=== PATIENT | male | born 1990 | race African-American/Black ===

== ENCOUNTER 2017-02-20 20:55 | Emergency (ER) | payer SELFPAY ==
[~2017-02-20] VITALS: Ht 170.2 cm; Wt 70.3 kg
[~2017-02-20 20:55] MED LIST: HYDR-971 PO; OMEP20TA63 PO; ONDA4TAB10 SL
[2017-02-20 21:00] VITALS: BP 153/90
--- NOTE | 2017-02-20 22:11 | PHYS DOC ---
Past Medical History Past Medical History: Gallstones, Other Additional Past Medical Histor: "inflammed gallbladder", Sickle Cell Trait Past Surgical History: No Surgical History Alcohol Use: Occasionally Drug Use: Marijuana, Methamphetamine Adult General Chief Complaint Chief Complaint: ALCOHOL INTOXICATION HPI HPI Patient is a 26 year old gentleman who was seen in the ED today secondary to being tased. Patient reports that he was drinking heavily today. Patient reports he came to the ER because his friend was ill. While the ER with apparent confrontation with security which required the patient being tased. Upon my arrival the patient was originally being evaluated with can see please department. The patient originally been removed. The patient was clearly upset and was refusing to talk to me. Patient uses multiple expletives at me in a threatening way as well as threatening my and children if anything get out of his face. I discussed with the patient that I would need to clear her medically before we can proceed any further and I discussed with him that I would allow him time to cool down and I would come back to reevaluate him. At this time patient was a cuffed with can see please his bedside. He remained calm in the room and the decision was made to release him from hitting cuffs and the police left. Once please left patient was much more cooperative. Patient was able to give a full history. Patient reports that he came here today because his friend was ill with retrosternal okay. Patient was concerned because he left his 2 daughters with the neighbors that he really wants to go back. Patient has any fevers shakes chills nausea vomiting diarrhea chest pain shortness of breath cough cold or rhinorrhea. Patient refusing any further workup in the ER now. Patient is refusing to stay in the hospital any further because he really wants to see his kids. Patient's physical exam was unremarkable. Patient had a small puncture wound to his back with no active bleeding. Patient is alert awake oriented 3. Once please left patient was initially appropriate and thankful for everything that we have done. Patient was apologetic for the way that he behaved. Patient is able to iodine the ED without any difficulty. Patient stable gait. Patient has full capacity of the situation. Is competent to make medical decision making. Patient understands my concerns and leaving prior to full evaluation. Patient has a dressed multiple times that he would refuse to stay and he becomes somewhat aggressive when I try to her person associated with him. Patient has agreed to call his girlfriend to come pick him up. Patient's girlfriend was unable to pick him up so he is decided to leave. Our urge nurse Rosa has offered to get him a cab voucher to take him back home however he is refusing to stay and decided to just leave. Review of Systems Review of Systems Constitutional: Denies fever or chills [] Eyes: Denies change in visual acuity, redness, or eye pain [] All other review systems are negative except as documented in history of present illness portion. Allergies Allergies Allergies Coded Allergies Type Severity Reaction Last Updated Verified No Known Drug Allergies 05/14/16 No Physical Exam Physical Exam Constitutional: Well developed, well nourished, no acute distress, non-toxic appearance. [] HENT: Normocephalic, atraumatic, bilateral external ears normal, Eyes: PERRLA, EOMI, conjunctiva normal, no discharge. [] Neck: Normal range of motion, no tenderness, supple, no stridor. [] Cardiovascular:Heart rate regular rhythm, no murmur [] Lungs & Thorax: Bilateral breath sounds clear to auscultation [] Abdomen: Bowel sounds normal, soft, no tenderness, no masses, no pulsatile masses. [] Skin: Warm, dry, no erythema, no rash. [] Back: No tenderness, no CVA tenderness. [] Extremities: No tenderness, no cyanosis, no clubbing, ROM intact, no edema. [] Neurologic: Alert and oriented X 3, normal motor function, normal sensory function, no focal deficits noted. [] Psychologic: Affect normal, judgement normal, mood normal. [] Current Patient Data Vital Signs Vital Signs Date Time Temp Pulse Resp B/P (MAP) Pulse Ox O2 Delivery O2 Flow Rate FiO2 02/20/17 21:00 98 22 153/90 (111) 97 Room Air EKG EKG [] Radiology/Procedures Radiology/Procedures [] Course & Med Decision Making Course & Med Decision Making Pertinent Labs and Imaging studies reviewed. (See chart for details) [] Dragon Disclaimer Dragon Disclaimer This electronic medical record was generated, in whole or in part, using a voice recognition dictation system. Departure Departure Impression: Primary Impression: Taser injury Additional Impression: Alcohol use Disposition: HOME, SELF-CARE Condition: IMPROVED Referrals: NO PCP (PCP) Patient Instructions: Alcohol Problems, Wound Care, [id number] Problem Qualifiers Primary Impression: Taser injury Encounter type: initial encounter Qualified Codes: T75.4XXA - Electrocution , initial encounter YARA BOWMAN MD February 20, 2017 22:11
== END 2017-02-20 22:17 | disposition home or self-care (01) ==
LOC: ER 20:55
DX: T75.4XXA Electrocution, initial encounter (principal); F10.129 Alcohol abuse with intoxication, unspecified; F12.10 Cannabis abuse, uncomplicated; F15.10 Other stimulant abuse, uncomplicated; X58.XXXA Exposure to other specified factors, initial encounter; Y93.89 Activity, other specified; Y99.8 Other external cause status; Y92.89 Other specified places as the place of occurrence of the external cause
CPT/HCPCS: 99281

== ENCOUNTER 2017-09-21 10:39 | Emergency (ER) | payer SELFPAY ==
[~2017-09-21] VITALS: Ht 180.3 cm; Wt 70.3 kg
--- NOTE | 2017-09-21 11:11 | RAD ---
EXAM: CHEST 2 VIEWS History: Vomiting, lightheadedness COMPARISON: 09/04/2016 TECHNIQUE: PA and lateral chest radiographs FINDINGS: The cardiomediastinal silhouette is within normal limits. The lungs are clear bilaterally. The costophrenic sulci are clear and well demarcated bilaterally. IMPRESSION: No radiographic evidence of an acute cardiopulmonary abnormality.
[2017-09-21] MEDS ORDERED: BENZ100C PO (11:18)
[2017-09-21] MEDS ORDERED: PRED20TA PO (11:18)
--- NOTE | 2017-09-21 11:18 | PHYS DOC ---
Past Medical History Past Medical History: Gallstones, Other Additional Past Medical Histor: "inflammed gallbladder", Sickle Cell Trait Past Surgical History: No Surgical History Additional Information: 0.5 PPD Alcohol Use: Heavy Additional Information: DRINKS EVERY 2 TO 3 DAYS, 1/2 TO 1 [employer]. Drug Use: Marijuana, Methamphetamine Adult General Chief Complaint Chief Complaint: CHEST PAIN-NON CARDIAC NATURE HPI HPI Patient is a 27 year old male presents the ED complaining of cough 2 days. Patient states he has pain in his chest when he coughs. Associated symptoms include sore throat and rhinorrhea. Patient states he is a pack-a-day smoker. Patient also uses marijuana. Denies fever, palpitations, dizziness, weakness, nausea/vomiting, abdominal pain, headache, body aches, fever or sore throat. Review of Systems Review of Systems Constitutional: Denies fever or chills [] Eyes: Denies change in visual acuity, redness, or eye pain [] HENT: Denies nasal congestion or sore throat [] Respiratory: Complains of cough. Denies shortness of breath [] Cardiovascular: No additional information not addressed in HPI [] GI: Denies abdominal pain, nausea, vomiting, bloody stools or diarrhea [] : Denies dysuria or hematuria [] Musculoskeletal: Denies back pain or joint pain [] Integument: Denies rash or skin lesions [] Neurologic: Denies headache, focal weakness or sensory changes [] Endocrine: Denies polyuria or polydipsia [] All other systems were reviewed and found to be within normal limits, except as documented in this note. Allergies Allergies Allergies Coded Allergies Type Severity Reaction Last Updated Verified No Known Drug Allergies 05/14/16 No Physical Exam Physical Exam Constitutional: Well developed, well nourished, no acute distress, non-toxic appearance. [] HENT: Normocephalic, atraumatic, bilateral external ears normal, oropharynx moist, no oral exudates, nose normal. [] Eyes: PERRLA, EOMI, conjunctiva normal, no discharge. [] Neck: Normal range of motion, no tenderness, supple, no stridor. [] Cardiovascular:Heart rate regular rhythm, no murmur [] Lungs & Thorax: Bilateral breath sounds clear to auscultation. DRY COUGH. [] Abdomen: Bowel sounds normal, soft, no tenderness, no masses, no pulsatile masses. [] Skin: Warm, dry, no erythema, no rash. [] Neurologic: Alert and oriented X 3, normal motor function, normal sensory function, no focal deficits noted. [] Psychologic: Affect normal, judgement normal, mood normal. [] Current Patient Data Vital Signs Vital Signs Date Time Temp Pulse Resp B/P (MAP) Pulse Ox O2 Delivery O2 Flow Rate FiO2 09/21/17 11:32 70 16 124/73 (90) 99 Room Air 09/21/17 10:39 98.0 98.0 EKG EKG NSR at 65 bpm. No STEMI. No acute changes.[] Radiology/Procedures Radiology/Procedures PROCEDURE: CHEST PA & LATERAL EXAM: CHEST 2 VIEWS History: Vomiting, lightheadedness COMPARISON: 09/04/2016 TECHNIQUE: PA and lateral chest radiographs FINDINGS: The cardiomediastinal silhouette is within normal limits. The lungs are clear bilaterally. The costophrenic sulci are clear and well demarcated bilaterally. IMPRESSION: No radiographic evidence of an acute cardiopulmonary abnormality.[] Course & Med Decision Making Course & Med Decision Making Pertinent Labs and Imaging studies reviewed. (See chart for details) []Discussed imaging findings with patient. Normal EKG. Patient states sick contacts at home. Same symptoms when previously diagnosed with bronchitis. Discussed smoking cessation. Will treat with prednisone and Tessalon Perles outpatient. Discussed follow-up and reasons to return to the ED. Provided community resource handout list. Discussed reasons to return to the ED. Patient understands agrees with plan. Dragon Disclaimer Dragon Disclaimer This electronic medical record was generated, in whole or in part, using a voice recognition dictation system. Departure Departure Impression: Primary Impression: Cough Disposition: 01 HOME, SELF-CARE Condition: IMPROVED Referrals: NO PCP (PCP) EARL BIRD MD Patient Instructions: Cough, Adult Scripts Benzonatate (TESSALON PERLE) 100 Mg Capsule 1 CAP PO TID, #21 CAP Prov: FAMILIA DELEON 09/21/17 Prednisone (PREDNISONE) 20 Mg Tablet 2 TAB PO DAILY, #10 TAB Prov: FAMILIA DELEON 09/21/17 FAMILIA DELEON Sep 21, 2017 11:18
[2017-09-21 11:32] VITALS: BP 124/73
--- NOTE | 2017-09-21 11:45 | EKG ---
[facility] [address] [place] [address] Test Date: 2017-09-21 Test Time: 11:06:32 Pat Name: GRETTA COLEMAN Department: Room: Gender: M [employer]: : 1990 Requested By: FAMILIA DELEON Order Number: [id number] Reading MD: Measurements Intervals [place] Rate: 65 P: 119 OR: 136 QRS: 106 QRSD: 88 T: 124 QT: 378 QTc: 398 Interpretive Statements SINUS RHYTHM RIGHTWARD AXIS QRS(T) CONTOUR ABNORMALITY CONSISTENT WITH HIGH LATERAL MYOCARDIAL DAMAGE ABNORMAL ECG RI6.01 No previous ECG available for comparison
== END 2017-09-21 11:33 | disposition home or self-care (01) ==
LOC: ER 10:39
DX: R05 Cough (principal); R07.9 Chest pain, unspecified; J02.9 Acute pharyngitis, unspecified; F17.210 Nicotine dependence, cigarettes, uncomplicated; F12.10 Cannabis abuse, uncomplicated; F15.10 Other stimulant abuse, uncomplicated
CPT/HCPCS: 71020; 93005; 99284

== ENCOUNTER 2019-01-29 20:46 | Emergency (ER) | payer SELFPAY ==
[~2019-01-29 20:46] MED LIST changes: +BENZ100C PO; +HYDR-3164 PO; -HYDR-971 PO; +PRED20TA PO
== END 2019-01-29 20:52 | disposition left against medical advice (07) ==
LOC: ER 20:46
DX: R06.02 Shortness of breath (principal); Z53.21 Procedure and treatment not carried out due to patient leaving prior to being seen by health care provider